=== PATIENT | female | born 1930 | race Caucasian/White ===

== ENCOUNTER → 2016-07-12 | Outpatient (CLI) | payer MEDICARE | END | disposition home or self-care (01) | LOC: CFH 15:02 | PROVIDERS: ATTEND Family Medicine | DX: M25.841 Other specified joint disorders, right hand (principal) ==

== ENCOUNTER 2017-05-28 15:13 | Inpatient (IN) | payer MEDICARE ==
[~2017-05-28] VITALS: Ht 165.1 cm; Wt 69.4 kg
[2017-05-28] MEDS ORDERED: ALBU1.25 NEB (15:29)
[2017-05-28] MEDS ORDERED: CPAP AT NIGHT (15:29)
[2017-05-28] MEDS ORDERED: LOSA1TAB19 PO (15:30)
[2017-05-28] MEDS ORDERED: AZIT500T PO (15:31)
[2017-05-28] MEDS ORDERED: METH4TAB2 PO (15:31)
[2017-05-28] MEDS ORDERED: TIOT18CA INH (15:31)
[2017-05-28] MEDS ORDERED: LINA290C PO (15:32)
[2017-05-28 16:00] LABS: BASOPHILS # (AUTO) 0.01 x10^3/uL (0-0.1); BASOPHILS % (AUTO) 0 % (0-1); EOSINOPHILS # (AUTO) 0.02 x10^3/uL (0-0.4); EOSINOPHILS % (AUTO) 0 % (1-7); LYMPHOCYTES # (AUTO) 1.03 x10^3/uL (1-3.4); LYMPHOCYTES % (AUTO) 14 % (22-44); MD NO; MEAN CORPUSCULAR HGB CONC 32.9 g/dL (32.4-35.8); MEAN CORPUSCULAR VOLUME 85.2 fL (80-100); MEAN PLATELET VOLUME 9.1 fL (7.4-10.4); MONOCYTES # (AUTO) 0.33 x10^3/uL (0.2-0.8); MONOCYTES % (AUTO) 4 % (2-9); NEUTROPHILS # (AUTO) 6.08 x10^3/uL (1.8-6.8); NEUTROPHILS % (AUTO) 81 % (42-75); PLATELET COUNT 277 x10^3/uL (130-400); RED BLOOD COUNT 4.79 x10^6/uL (3.82-5.3); RED CELL DISTRIBUTION WIDTH 14.1 % (9.6-15.2)
[2017-05-28] MEDS ORDERED: SODIUM CHLORIDE FLUSH 10ML SYR IVF ONE (16:00)
[2017-05-28 16:13] LABS: ALANINE AMINOTRANSFERASE 33 U/L (12-78); ANION GAP 11 mmol/L (5-15); CALCIUM 9.5 mg/dL (8.5-10.1); CHLORIDE 106 mmol/L (98-107); CREATININE 1.02 mg/dL (0.55-1.02)
[2017-05-28 16:17] LABS: ALKALINE PHOSPHATASE 84 U/L (45-117); BILIRUBIN,TOTAL 0.6 mg/dL (0.2-1.0); TOTAL PROTEIN 7.5 g/dL (6.4-8.2); TROPONIN I < 0.015 ng/mL (0.000-0.045)
[2017-05-28 17:04] LABS: MICROSCOPIC NOT IND
[2017-05-28 17:06] LABS: CULTURE INDICATED? NO
[2017-05-28] MEDS ORDERED: methylPREDNISolone SOD SUCC 125 MG/2 ML IVPush ONE (19:00)
[2017-05-28] MEDS ORDERED: POLYETHYLENE GLYCOL 17 GM PACKET PO PRN (19:00)
[2017-05-28] MEDS ORDERED: IPRATROPIUM 0.5 MG/2.5 ML INHA NPPB SCH (19:00)
[2017-05-28] MEDS ORDERED: TEMPLATE NON-FORMULARY MED. (Linaclotide** (Linzess**) 290 MCG) PO SCH (19:00)
[2017-05-28] MEDS ORDERED: GUAIFENESIN/DM 200-20MG, 10ML UDC PO PRN (19:00)
[2017-05-28] MEDS ORDERED: ONDANSETRON 2MG/ML, 2ML IVPush PRN (19:00)
[2017-05-28] MEDS ORDERED: BISACODYL 10 MG SUPP PR PRN (19:00)
[2017-05-28 19:44] VITALS: BP 167/87
[2017-05-28] MEDS: methylPREDNISolone SOD SUCC 125 MG/2 ML IVPush SCH (20:53)
[2017-05-28] MEDS: SODIUM CHLORIDE FLUSH 10ML SYR IVF SCH (20:54)
[2017-05-28] MEDS: HEPARIN 5,000 UNITS/ML, 1ML SQ SCH (20:54)
[2017-05-28] MEDS ORDERED: ALBUTEROL/IPRATROPIUM 2.5MG/0.5MG, 3 ML NPPB PRN (21:00)
[2017-05-28 23:21] VITALS: BP 167/87
[2017-05-29] MEDS: ACETAMINOPHEN 325 MG TABLET PO PRN (01:45)
[2017-05-29 01:49] VITALS: BP 152/78
[2017-05-29 05:00] LABS: BASOPHILS # (AUTO) 0.01 x10^3/uL (0-0.1); BASOPHILS % (AUTO) 0 % (0-1); EOSINOPHILS % (AUTO) 0 % (1-7); LYMPHOCYTES # (AUTO) 0.86 x10^3/uL (1-3.4); LYMPHOCYTES % (AUTO) 13 % (22-44); MD NO; MEAN CORPUSCULAR HEMOGLOBIN 28.2 pg (27.0-34.8); MEAN CORPUSCULAR HGB CONC 33.1 g/dL (32.4-35.8); MEAN CORPUSCULAR VOLUME 85.2 fL (80-100); MEAN PLATELET VOLUME 9.2 fL (7.4-10.4); MONOCYTES # (AUTO) 0.18 x10^3/uL (0.2-0.8); MONOCYTES % (AUTO) 3 % (2-9); NEUTROPHILS # (AUTO) 5.77 x10^3/uL (1.8-6.8); NEUTROPHILS % (AUTO) 85 % (42-75); PLATELET COUNT 264 x10^3/uL (130-400); RED BLOOD COUNT 4.65 x10^6/uL (3.82-5.3); RED CELL DISTRIBUTION WIDTH 13.7 % (9.6-15.2)
[2017-05-29 05:14] LABS: CHLORIDE 104 mmol/L (98-107)
[2017-05-29 05:21] LABS: ALANINE AMINOTRANSFERASE 30 U/L (12-78); ALBUMIN 3.7 g/dL (3.4-5.0); ALKALINE PHOSPHATASE 78 U/L (45-117); ANION GAP 13 mmol/L (5-15); BILIRUBIN,TOTAL 0.6 mg/dL (0.2-1.0); CALCIUM 8.9 mg/dL (8.5-10.1); CREATININE 0.96 mg/dL (0.55-1.02); TOTAL PROTEIN 7.2 g/dL (6.4-8.2)
[2017-05-29] MEDS: methylPREDNISolone SOD SUCC 125 MG/2 ML IVPush SCH ×3 (05:21→21:19)
[2017-05-29] MEDS: HEPARIN 5,000 UNITS/ML, 1ML SQ SCH ×3 (05:22→21:19)
[2017-05-29] MEDS: ALBUTEROL/IPRATROPIUM 2.5MG/0.5MG, 3 ML NPPB SCH ×4 (07:18→19:13)
[2017-05-29 07:29] LABS: CLOSTRIDIUM DIFFICILE ANTIGEN NEGATIVE; CLOSTRIDIUM DIFFICILE TOXIN NEGATIVE (Negative)
[2017-05-29 07:52] VITALS: BP 159/90
[2017-05-29] MEDS: HYDROCHLOROTHIAZIDE 12.5 MG CAPSULE PO SCH (09:00)
[2017-05-29] MEDS: SENNA/DOCUSATE TABLET PO SCH (09:00)
[2017-05-29] MEDS: SODIUM CHLORIDE FLUSH 10ML SYR IVF SCH ×2 (09:16→21:20)
[2017-05-29] MEDS: TEMPLATE NON-FORMULARY MED. (Linaclotide** (Linzess**) 290 MCG) PO SCH (09:16)
[2017-05-29] MEDS: LOSARTAN 50MG TABLET PO SCH (09:20)
[2017-05-29] MEDS: LACTOBACILLUS CHEW TABLET PO SCH ×3 (09:20→21:20)
[2017-05-29] MEDS: GUAIFENESIN ER 600 MG TABLET PO SCH ×2 (09:20→21:20)
[2017-05-29] MEDS: FLUTICASONE/VILANTEROL 100-25MCG/INH INH SCH (10:03)
[2017-05-29] MEDS ORDERED: ASPI-496 PO (12:32)
[2017-05-29] MEDS ORDERED: PREG50CA PO (12:32)
[2017-05-29] MEDS ORDERED: ALBU8.5H8 INH (12:32)
[2017-05-29] MEDS ORDERED: LOSA100T6 PO (12:32)
[2017-05-29] MEDS ORDERED: MAGN400T36 PO (12:32)
[2017-05-29] MEDS ORDERED: CETI-158 PO (12:32)
[2017-05-29] MEDS ORDERED: [UNRECOGNIZED DRUG - CODE] PO (12:32)
[2017-05-29] MEDS ORDERED: CHOL100011 PO (12:32)
[2017-05-29] MEDS ORDERED: BETA1TAB3 PO (12:32)
[2017-05-29] MEDS ORDERED: OMEP-110 PO (12:32)
[2017-05-29] MEDS ORDERED: TRIA10.8 NAS (12:32)
[2017-05-29] MEDS ORDERED: DOCU-131 PO (12:32)
[2017-05-29] MEDS ORDERED: FLUO40CA2 PO (12:49)
[2017-05-29 13:47] VITALS: BP 129/74
[2017-05-29] MEDS: OMEPRAZOLE 20 MG CAPSULE.DR PO SCH (15:56)
[2017-05-29 19:48] VITALS: BP 125/68
[2017-05-30 00:49] VITALS: BP 161/84
[2017-05-30] MEDS: methylPREDNISolone SOD SUCC 125 MG/2 ML IVPush SCH ×2 (05:32→12:32)
[2017-05-30] MEDS: HEPARIN 5,000 UNITS/ML, 1ML SQ SCH ×2 (05:32→12:32)
[2017-05-30] MEDS: ALBUTEROL/IPRATROPIUM 2.5MG/0.5MG, 3 ML NPPB SCH ×2 (06:34→12:20)
[2017-05-30] MEDS: TEMPLATE NON-FORMULARY MED. (Linaclotide** (Linzess**) 290 MCG) PO SCH (07:30)
[2017-05-30 08:01] VITALS: BP 178/72
[2017-05-30] MEDS ORDERED: ALBU1.25 NEB (08:06)
[2017-05-30] MEDS ORDERED: PRED10TA PO (08:06)
[2017-05-30] MEDS: SENNA/DOCUSATE TABLET PO SCH (09:00)
[2017-05-30] MEDS: LOSARTAN 50MG TABLET PO SCH (09:47)
[2017-05-30] MEDS: OMEPRAZOLE 20 MG CAPSULE.DR PO SCH (09:47)
[2017-05-30] MEDS: GUAIFENESIN ER 600 MG TABLET PO SCH (09:47)
[2017-05-30] MEDS: FLUTICASONE/VILANTEROL 100-25MCG/INH INH SCH (09:47)
[2017-05-30] MEDS: SODIUM CHLORIDE FLUSH 10ML SYR IVF SCH (09:47)
[2017-05-30] MEDS: HYDROCHLOROTHIAZIDE 12.5 MG CAPSULE PO SCH (09:48)
[2017-05-30] MEDS: LACTOBACILLUS CHEW TABLET PO SCH (09:48)
[2017-05-30] MEDS: ACETAMINOPHEN 325 MG TABLET PO PRN (10:01)
== END 2017-05-30 13:13 | disposition home or self-care (01) | DRG 191 ==
LOC: ED 17:09 → EDIP 17:10 → ED 17:37 → 3NE 18:32 → DCLOUNGE 05-30 12:57
PROVIDERS: ADMIT Family Medicine; ATTEND Family Medicine
DX: J44.1 Chronic obstructive pulmonary disease with (acute) exacerbation (principal); E87.2 Acidosis; G62.9 Polyneuropathy, unspecified; Z99.81 Dependence on supplemental oxygen; I10 Essential (primary) hypertension; F32.9 Major depressive disorder, single episode, unspecified; F41.9 Anxiety disorder, unspecified; G47.30 Sleep apnea, unspecified; K21.9 Gastro-esophageal reflux disease without esophagitis; K58.9 Irritable bowel syndrome, unspecified; Z66 Do not resuscitate; Z72.0 Tobacco use; Z80.0 Family history of malignant neoplasm of digestive organs; Z82.5 Family history of asthma and other chronic lower respiratory diseases; Z85.3 Personal history of malignant neoplasm of breast; Z90.13 Acquired absence of bilateral breasts and nipples; Z96.619 Presence of unspecified artificial shoulder joint; Z96.649 Presence of unspecified artificial hip joint
CPT/HCPCS: 36415; 71045; 80053; 81003; 83605; 83880; 84484; 85025; 85379; 87040; 87324; 93005; 94640; 99285; J1644; J7620; J7644; J2930

== ENCOUNTER 2017-08-20 14:37 | Inpatient (IN) | payer MEDICARE, MEDICAID ==
[~2017-08-20] VITALS: Ht 165.1 cm; Wt 73.4 kg
[~2017-08-20 14:37] MED LIST: ALBU1.25 NEB; ALBU8.5H8 INH; ASPI-496 PO; AZIT500T PO; BETA1TAB3 PO; CETI-158 PO; CHOL100011 PO; CPAP AT NIGHT; DOCU-131 PO; FLUO40CA2 PO; LINA290C PO; LOSA100T6 PO; LOSA1TAB19 PO; MAGN400T36 PO; METH4TAB2 PO; OMEP-110 PO; PRED10TA PO; PREG50CA PO; TIOT18CA INH; TRIA10.8 NAS; [UNRECOGNIZED DRUG - CODE] PO
[2017-08-20] MEDS ORDERED: CEFTRIAXONE PMX 1GM/50ML 50 ML IVPB ONE (15:00)
[2017-08-20] MEDS ORDERED: SODIUM CHLORIDE FLUSH 10ML SYR IVF ONE (15:00)
[2017-08-20] MEDS ORDERED: CEFTRIAXONE PMX 1GM/50ML 50 ML ONE (15:20)
[2017-08-20 15:43] LABS: BASOPHILS # (AUTO) 0.01 x10^3/uL (0-0.1); BASOPHILS % (AUTO) 0 % (0-1); EOSINOPHILS # (AUTO) 0.08 x10^3/uL (0-0.4); EOSINOPHILS % (AUTO) 1 % (1-7); LYMPHOCYTES # (AUTO) 1.73 x10^3/uL (1-3.4); LYMPHOCYTES % (AUTO) 28 % (22-44); MD NO; MEAN CORPUSCULAR HEMOGLOBIN 29.3 pg (27.0-34.8); MEAN CORPUSCULAR HGB CONC 33.4 g/dL (32.4-35.8); MEAN CORPUSCULAR VOLUME 87.6 fL (80-100); MONOCYTES # (AUTO) 0.63 x10^3/uL (0.2-0.8); MONOCYTES % (AUTO) 10 % (2-9); NEUTROPHILS # (AUTO) 3.82 x10^3/uL (1.8-6.8); NEUTROPHILS % (AUTO) 61 % (42-75); PLATELET COUNT 247 x10^3/uL (130-400); RED BLOOD COUNT 4.65 x10^6/uL (3.82-5.3); RED CELL DISTRIBUTION WIDTH 14.4 % (9.6-15.2)
[2017-08-20 15:49] LABS: ANION GAP 14 mmol/L (5-15); CALCIUM 9.9 mg/dL (8.5-10.1); CHLORIDE 102 mmol/L (98-107); CREATININE 1.04 mg/dL (0.55-1.02)
[2017-08-20] MEDS ORDERED: POTASSIUM CHLORIDE 20 MEQ TAB.ER.PRT PO ONE (16:30)
[2017-08-20 17:05] VITALS: BP 145/84
[2017-08-20] MEDS ORDERED: DOCUSATE 100 MG CAPSULE PO PRN (17:30)
[2017-08-20] MEDS ORDERED: BISACODYL 10 MG SUPP PR PRN (17:30)
[2017-08-20] MEDS ORDERED: ACETAMINOPHEN 325 MG TABLET PO PRN (17:30)
[2017-08-20] MEDS ORDERED: POLYETHYLENE GLYCOL 17 GM PACKET PO PRN (17:30)
[2017-08-20] MEDS ORDERED: ONDANSETRON 2MG/ML, 2ML IVPush PRN (17:30)
[2017-08-20] MEDS ORDERED: hydrALAzine 20 MG/ML, 1ML IVPush PRN (17:30)
[2017-08-20] MEDS ORDERED: IPRATROPIUM 0.5 MG/2.5 ML INHA HHN SCH (18:00)
[2017-08-20] MEDS ORDERED: ENOXAPARIN 40 MG/0.4 ML SQ SCH (18:00)
[2017-08-20] MEDS: FLUTICASONE NASAL SPRAY 16GM NAS SCH (18:35)
[2017-08-20] MEDS: DOXYCYCLINE 100 MG in DEXTROSE 5% 250 ML IV SCH (18:35)
[2017-08-20 19:38] VITALS: BP 142/80
[2017-08-20] MEDS: methylPREDNISolone SOD SUCC 125 MG/2 ML IVPush SCH (19:41)
[2017-08-20] MEDS ORDERED: ALBUTEROL/IPRATROPIUM 2.5MG/0.5MG, 3 ML ONE (20:17)
[2017-08-20 21:36] LABS: MICROSCOPIC NOT IND
[2017-08-20 21:38] LABS: CULTURE INDICATED? NO
[2017-08-21 00:27] VITALS: BP 162/88
[2017-08-21 04:39] LABS: ANION GAP 9 mmol/L (5-15); CALCIUM 9.2 mg/dL (8.5-10.1); CHLORIDE 105 mmol/L (98-107); CREATININE 0.91 mg/dL (0.55-1.02)
[2017-08-21 04:46] LABS: BASOPHILS % (AUTO) 0 % (0-1); EOSINOPHILS % (AUTO) 0 % (1-7); LYMPHOCYTES # (AUTO) 0.41 x10^3/uL (1-3.4); LYMPHOCYTES % (AUTO) 12 % (22-44); MD NO; MEAN CORPUSCULAR HEMOGLOBIN 28.3 pg (27.0-34.8); MEAN CORPUSCULAR HGB CONC 32.5 g/dL (32.4-35.8); MEAN CORPUSCULAR VOLUME 87.3 fL (80-100); MEAN PLATELET VOLUME 9.4 fL (7.4-10.4); MONOCYTES # (AUTO) 0.05 x10^3/uL (0.2-0.8); MONOCYTES % (AUTO) 2 % (2-9); NEUTROPHILS # (AUTO) 3.05 x10^3/uL (1.8-6.8); NEUTROPHILS % (AUTO) 87 % (42-75); PLATELET COUNT 272 x10^3/uL (130-400); RED BLOOD COUNT 4.39 x10^6/uL (3.82-5.3); RED CELL DISTRIBUTION WIDTH 14.1 % (9.6-15.2)
[2017-08-21] MEDS: DOXYCYCLINE 100 MG in DEXTROSE 5% 250 ML IV SCH (05:53)
[2017-08-21] MEDS: ALBUTEROL/IPRATROPIUM 2.5MG/0.5MG, 3 ML NPPB SCH ×2 (08:00→10:30)
[2017-08-21] MEDS: methylPREDNISolone SOD SUCC 125 MG/2 ML IVPush SCH (08:22)
[2017-08-21] MEDS: FLUTICASONE NASAL SPRAY 16GM NAS SCH (08:27)
[2017-08-21 09:00] VITALS: BP 155/75
[2017-08-21] MEDS ORDERED: FLUOXETINE 10 MG CAP PO SCH (09:00)
[2017-08-21] MEDS ORDERED: CETIRIZINE 10 MG TABLET PO SCH (09:00)
[2017-08-21] MEDS ORDERED: ASPIRIN 81 MG TABLET EC PO SCH (09:00)
[2017-08-21] MEDS ORDERED: OMEPRAZOLE 20 MG CAPSULE.DR PO SCH (09:00)
[2017-08-21] MEDS ORDERED: MAGNESIUM OXIDE 400 MG TABLET PO SCH (09:00)
[2017-08-21] MEDS ORDERED: LOSARTAN 50MG TABLET PO SCH (09:00)
[2017-08-21] MEDS ORDERED: GUAIFENESIN ER 600 MG TABLET PO SCH (09:00)
[2017-08-21] MEDS ORDERED: DOCUSATE 100 MG CAPSULE PO SCH (09:00)
[2017-08-21] MEDS ORDERED: PREGABALIN 25 MG CAPSULE PO SCH (09:00)
[2017-08-21] MEDS ORDERED: CHOLECALCIFEROL 1,000 UNIT TABLET PO SCH (09:00)
[2017-08-21] MEDS ORDERED: DOXY100T PO (12:43)
[2017-08-21] MEDS ORDERED: [UNRECOGNIZED DRUG - CODE] PO (12:43)
[2017-08-21] MEDS ORDERED: PRED20TA PO (12:43)
== END 2017-08-21 16:04 | disposition home or self-care (01) | DRG 191 ==
LOC: ED 16:43 → 3NE 17:00 → DCLOUNGE 08-21 15:46
PROVIDERS: ADMIT Hospitalist; ATTEND Hospitalist
DX: J44.1 Chronic obstructive pulmonary disease with (acute) exacerbation (principal); E87.2 Acidosis; G62.9 Polyneuropathy, unspecified; Z99.81 Dependence on supplemental oxygen; I10 Essential (primary) hypertension; Z96.619 Presence of unspecified artificial shoulder joint; Z96.649 Presence of unspecified artificial hip joint; F32.9 Major depressive disorder, single episode, unspecified; K21.9 Gastro-esophageal reflux disease without esophagitis; K58.9 Irritable bowel syndrome, unspecified; Z72.0 Tobacco use; Z80.0 Family history of malignant neoplasm of digestive organs; Z82.5 Family history of asthma and other chronic lower respiratory diseases; Z85.3 Personal history of malignant neoplasm of breast; Z90.13 Acquired absence of bilateral breasts and nipples; Z90.49 Acquired absence of other specified parts of digestive tract
CPT/HCPCS: 36415; 71045; 80048; 81003; 82040; 83605; 83735; 84100; 85025; 87040; 93005; 94640; 96365; J0696; J2405; J7060; J7620; J7644; J2930

== ENCOUNTER 2019-03-20 13:45 | Inpatient (IN) | payer MEDICARE, MEDICAID ==
[~2019-03-20] VITALS: Ht 165.1 cm; Wt 73.3 kg
[~2019-03-20 13:45] MED LIST changes: +ASPI-515 PO/NG; +ATOR-2 PO; +DOXY100T PO; +ENOX40SY4 SQ; +LOSA100T14 PO; -LOSA100T6 PO; +OMEP20CA14 PO; +PRED20TA PO; +[UNRECOGNIZED DRUG - CODE] PO
[2019-03-20] MEDS ORDERED: ALBUTEROL/IPRATROPIUM 2.5MG/0.5MG, 3 ML NPPB ONE (14:30)
[2019-03-20] MEDS ORDERED: SODIUM CHLORIDE 0.9% 1,000ML IVBOLUS ONE (14:30)
[2019-03-20] MEDS ORDERED: SODIUM CHLORIDE FLUSH 10ML SYR IVF ONE (14:30)
[2019-03-20 14:54] LABS: BASOPHILS # (AUTO) 0.01 x10^3/uL (0-0.1); BASOPHILS % (AUTO) 0 % (0-1); EOSINOPHILS % (AUTO) 0 % (1-7); LYMPHOCYTES % (AUTO) 5 % (22-44); MD NO; MEAN CORPUSCULAR HEMOGLOBIN 28.3 pg (27.0-34.8); MEAN CORPUSCULAR HGB CONC 32.2 g/dL (32.4-35.8); MEAN CORPUSCULAR VOLUME 87.7 fL (80-100); MEAN PLATELET VOLUME 8.8 fL (7.4-10.4); MONOCYTES # (AUTO) 0.62 x10^3/uL (0.2-0.8); MONOCYTES % (AUTO) 6 % (2-9); NEUTROPHILS # (AUTO) 9.11 x10^3/uL (1.8-6.8); NEUTROPHILS % (AUTO) 89 % (42-75); PLATELET COUNT 269 x10^3/uL (130-400); RED BLOOD COUNT 4.52 x10^6/uL (3.82-5.3); RED CELL DISTRIBUTION WIDTH 14.3 % (9.6-15.2)
[2019-03-20 15:03] LABS: ALANINE AMINOTRANSFERASE 35 U/L (12-78); ALBUMIN 4.2 g/dL (3.4-5.0); ANION GAP 10 mmol/L (5-15); CALCIUM 9.8 mg/dL (8.5-10.1); CHLORIDE 106 mmol/L (98-107)
[2019-03-20] MEDS ORDERED: ALBUTEROL/IPRATROPIUM 2.5MG/0.5MG, 3 ML ONE (15:07)
[2019-03-20 15:08] LABS: ALKALINE PHOSPHATASE 94 U/L (45-117); BILIRUBIN,TOTAL 0.6 mg/dL (0.2-1.0); CREATININE 0.91 mg/dL (0.55-1.02); TOTAL PROTEIN 7.7 g/dL (6.4-8.2)
[2019-03-20] MEDS ORDERED: ASPIRIN 81 MG TABLET CHEW ONE (15:25)
[2019-03-20 15:30] LABS: RAPID INFLUENZA A Negative (Negative); RAPID INFLUENZA B Negative (Negative)
--- NOTE | 2019-03-20 15:36 | NUR ---
trop 2.0, notified, asa per may, ekg done. nsr on monitor. denies cp.repostioned. c/o some sob. plan for admit. was taking azithro po at home. as
[2019-03-20] MEDS ORDERED: ASPIRIN 81 MG TABLET CHEW PO ONE (16:00)
--- NOTE | 2019-03-20 16:16 | NUR ---
called for hospital bed. as
--- NOTE | 2019-03-20 16:46 | NUR ---
pt moved to hospital bed, plan for admit. family at bedside. vss. nsr on monitor 70s. denies cp. as
--- NOTE | 2019-03-20 17:09 | NUR ---
repositioned. NAD. as
[2019-03-20] MEDS ORDERED: SODIUM CHLORIDE FLUSH 10ML SYR IVF PRN (18:30)
--- NOTE | 2019-03-20 19:28 | NUR ---
pt repositioned, sleeping. vss. as
--- NOTE | 2019-03-20 19:48 | NUR ---
[facility] munguia in [facility] - 03/20/19 at 1948 by SINDI KATHERINER 170
[2019-03-20] MEDS ORDERED: ONDANSETRON 2MG/ML, 2ML IVPush PRN (20:00)
[2019-03-20] MEDS ORDERED: BISACODYL 10 MG SUPP PR PRN (20:00)
[2019-03-20] MEDS ORDERED: DOCUSATE 100 MG CAPSULE PO PRN (20:00)
[2019-03-20] MEDS ORDERED: ACETAMINOPHEN 325 MG TABLET PO PRN (20:00)
[2019-03-20] MEDS ORDERED: POLYETHYLENE GLYCOL 17 GM PACKET PO PRN (20:00)
[2019-03-20] MEDS ORDERED: ENOXAPARIN 40 MG/0.4 ML SQ SCH (20:00)
[2019-03-20] MEDS ORDERED: ENOXAPARIN 40 MG/0.4 ML ONE (20:21)
[2019-03-20] MEDS ORDERED: methylPREDNISolone SOD SUCC 40 MG/ML ONE (20:22)
[2019-03-20] MEDS ORDERED: BENZONATATE 100 MG CAPSULE ONE (20:22)
--- NOTE | 2019-03-20 20:26 | NUR ---
pt coughing, asked dr chavez for order for cough meds. family notifeid. as
--- NOTE | 2019-03-20 20:40 | NUR ---
dr chavez notified of trop 2.0 to 2.9 plan for heparin gtt. as
[2019-03-20] MEDS ORDERED: HEPARIN 25,000 UNITS/500ML PMX 500 ML ONE (20:44)
[2019-03-20] MEDS ORDERED: HEPARIN 5,000 UNITS/ML, 1ML ONE (20:44)
[2019-03-20] MEDS: methylPREDNISolone SOD SUCC 40 MG/ML IVPush SCH (21:03)
[2019-03-20] MEDS: ATORVASTATIN 80 MG TABLET PO SCH (21:05)
[2019-03-20] MEDS ORDERED: DOXYCYCLINE 100MG TABLET ONE (21:20)
--- NOTE | 2019-03-20 21:27 | NUR ---
spoke w/ pharmacy, verifieid heparin gtt, heparin infusing. as
[2019-03-20] MEDS ORDERED: HEPARIN 5,000 UNITS/ML, 1ML IV ONE (21:30)
[2019-03-20] MEDS ORDERED: HEPARIN 5,000 UNITS/ML, 1ML IV PRN (21:30)
[2019-03-20] MEDS ORDERED: HEPARIN 25,000 UNITS/500ML PMX 500 ML IV PRN (21:30)
[2019-03-20] MEDS ORDERED: ONDANSETRON 2MG/ML, 2ML ONE (21:32)
[2019-03-20] MEDS: GUAIFENESIN/DM 100-10MG, 5ML UDC PO PRN (21:43)
[2019-03-20] MEDS: DOXYCYCLINE 100MG TABLET PO SCH (21:43)
--- NOTE | 2019-03-20 21:48 | NUR ---
bedpan. prn meds. call zamudio in reach. NAD. as
[2019-03-20] MEDS ORDERED: INSTRUCTION SEE COMMENTS XX PRN (22:00)
[2019-03-21 00:09] VITALS: BP 129/75
[2019-03-21 02:37] LABS: BASOPHILS % (AUTO) 0 % (0-1); EOSINOPHILS # (AUTO) 0.01 x10^3/uL (0-0.4); EOSINOPHILS % (AUTO) 0 % (1-7); LYMPHOCYTES # (AUTO) 0.56 x10^3/uL (1-3.4); LYMPHOCYTES % (AUTO) 6 % (22-44); MD NO; MEAN CORPUSCULAR HEMOGLOBIN 28.1 pg (27.0-34.8); MEAN CORPUSCULAR HGB CONC 31.9 g/dL (32.4-35.8); MEAN CORPUSCULAR VOLUME 88.1 fL (80-100); MEAN PLATELET VOLUME 8.8 fL (7.4-10.4); MONOCYTES # (AUTO) 0.11 x10^3/uL (0.2-0.8); MONOCYTES % (AUTO) 1 % (2-9); NEUTROPHILS # (AUTO) 8.36 x10^3/uL (1.8-6.8); NEUTROPHILS % (AUTO) 92 % (42-75); PLATELET COUNT 246 x10^3/uL (130-400); RED BLOOD COUNT 4.29 x10^6/uL (3.82-5.3); RED CELL DISTRIBUTION WIDTH 14.9 % (9.6-15.2)
[2019-03-21 02:50] LABS: ALBUMIN 3.5 g/dL (3.4-5.0); ANION GAP 9 mmol/L (5-15); CHLORIDE 106 mmol/L (98-107)
[2019-03-21 03:01] LABS: ALANINE AMINOTRANSFERASE 38 U/L (12-78); ALKALINE PHOSPHATASE 79 U/L (45-117); BILIRUBIN,TOTAL 0.8 mg/dL (0.2-1.0); CHOL/HDL RATIO 3.1; CHOLESTEROL, TOTAL 184 mg/dL (140-239); CREATININE 0.72 mg/dL (0.55-1.02); HDL CHOL % 33 % (28-40); HDL CHOLESTEROL (DIRECT) 60 mg/dL (40-60); LDL CHOLESTEROL,CALCULATED 108 mg/dL (54-169); LDL/HDL RATIO 1.8 (0.5-3.0); TOTAL PROTEIN 6.8 g/dL (6.4-8.2); TRIGLYCERIDES 80 mg/dL (50-200); VLDL CHOLESTEROL 16 mg/dL (0-25)
[2019-03-21] MEDS: methylPREDNISolone SOD SUCC 40 MG/ML IVPush SCH ×4 (03:27→23:01)
[2019-03-21] MEDS ORDERED: ASPIRIN 325 MG TABLET EC PO SCH (06:00)
[2019-03-21] MEDS: ALBUTEROL/IPRATROPIUM 2.5MG/0.5MG, 3 ML NPPB SCH ×4 (07:00→20:15)
[2019-03-21 08:44] VITALS: BP 138/71
[2019-03-21] MEDS ORDERED: ENOXAPARIN 40 MG/0.4 ML SQ SCH (09:30)
[2019-03-21 10:23] VITALS: BP 152/72
[2019-03-21] MEDS: DOXYCYCLINE 100MG TABLET PO SCH ×2 (10:30→23:01)
[2019-03-21] MEDS: DOCUSATE 100 MG CAPSULE PO SCH (10:31)
[2019-03-21] MEDS: CLOPIDOGREL 75 MG TABLET PO SCH (10:32)
[2019-03-21] MEDS: OMEPRAZOLE 20 MG CAPSULE.DR PO SCH (10:32)
[2019-03-21] MEDS: PREGABALIN 25 MG CAPSULE PO SCH (10:32)
[2019-03-21] MEDS: FLUOXETINE HCL 20 MG CAPSULE PO SCH (10:33)
[2019-03-21] MEDS: CETIRIZINE 10 MG TABLET PO SCH (10:33)
[2019-03-21 11:48] VITALS: BP 145/76
[2019-03-21] MEDS: LOSARTAN 50MG TABLET PO SCH (11:50)
[2019-03-21] MEDS: GUAIFENESIN/DM 100-10MG, 5ML UDC PO PRN (13:13)
[2019-03-21 15:59] VITALS: BP 105/58
[2019-03-21 21:02] VITALS: BP 113/64
[2019-03-21] MEDS: ATORVASTATIN 80 MG TABLET PO SCH (23:01)
[2019-03-22 00:18] VITALS: BP 113/66
[2019-03-22] MEDS: MELATONIN 3 MG TABLET PO PRN ×2 (01:39→20:35)
[2019-03-22 05:00] LABS: BASOPHILS % (AUTO) 0 % (0-1); EOSINOPHILS # (AUTO) 0.01 x10^3/uL (0-0.4); EOSINOPHILS % (AUTO) 0 % (1-7); LYMPHOCYTES % (AUTO) 7 % (22-44); MD NO; MEAN CORPUSCULAR VOLUME 87.7 fL (80-100); MEAN PLATELET VOLUME 9.6 fL (7.4-10.4); MONOCYTES # (AUTO) 0.41 x10^3/uL (0.2-0.8); MONOCYTES % (AUTO) 4 % (2-9); NEUTROPHILS # (AUTO) 9.27 x10^3/uL (1.8-6.8); NEUTROPHILS % (AUTO) 89 % (42-75); PLATELET COUNT 240 x10^3/uL (130-400); RED BLOOD COUNT 4.23 x10^6/uL (3.82-5.3); RED CELL DISTRIBUTION WIDTH 14.6 % (9.6-15.2)
[2019-03-22 05:07] LABS: ANION GAP 7 mmol/L (5-15); CALCIUM 8.8 mg/dL (8.5-10.1); CHLORIDE 105 mmol/L (98-107); CREATININE 1.05 mg/dL (0.55-1.02)
[2019-03-22] MEDS: methylPREDNISolone SOD SUCC 40 MG/ML IVPush SCH ×4 (05:14→20:36)
[2019-03-22] MEDS: ASPIRIN 81 MG TABLET EC PO SCH (06:00)
[2019-03-22] MEDS ORDERED: HALOPERIDOL 5 MG/ML IM ONE (06:30)
[2019-03-22] MEDS: ALBUTEROL/IPRATROPIUM 2.5MG/0.5MG, 3 ML NPPB SCH ×4 (07:00→19:04)
[2019-03-22] MEDS ORDERED: POTASSIUM CHLORIDE 20 MEQ TAB.ER.PRT PO ONE (09:30)
[2019-03-22 09:53] VITALS: BP 144/76
[2019-03-22] MEDS ORDERED: HALOPERIDOL 5 MG/ML IV PRN (10:00)
[2019-03-22] MEDS: OMEPRAZOLE 20 MG CAPSULE.DR PO SCH (12:00)
[2019-03-22] MEDS: CLOPIDOGREL 75 MG TABLET PO SCH (12:01)
[2019-03-22] MEDS: CETIRIZINE 10 MG TABLET PO SCH (12:01)
[2019-03-22] MEDS: FLUOXETINE HCL 20 MG CAPSULE PO SCH (12:01)
[2019-03-22] MEDS: LOSARTAN 50MG TABLET PO SCH (12:01)
[2019-03-22] MEDS: PREGABALIN 25 MG CAPSULE PO SCH (12:01)
[2019-03-22] MEDS: DOXYCYCLINE 100MG TABLET PO SCH ×2 (12:01→20:35)
[2019-03-22] MEDS: DOCUSATE 100 MG CAPSULE PO SCH (12:05)
[2019-03-22 14:44] VITALS: BP 123/77
[2019-03-22] MEDS: GUAIFENESIN/DM 100-10MG, 5ML UDC PO PRN (14:47)
[2019-03-22 20:15] VITALS: BP 107/67
[2019-03-22] MEDS: ATORVASTATIN 80 MG TABLET PO SCH (20:35)
[2019-03-23 02:57] VITALS: BP 107/60
[2019-03-23] MEDS: methylPREDNISolone SOD SUCC 40 MG/ML IVPush SCH ×4 (03:01→20:56)
[2019-03-23 05:30] LABS: BASOPHILS # (AUTO) 0.03 x10^3/uL (0-0.1); BASOPHILS % (AUTO) 0 % (0-1); EOSINOPHILS % (AUTO) 0 % (1-7); LYMPHOCYTES # (AUTO) 0.65 x10^3/uL (1-3.4); LYMPHOCYTES % (AUTO) 5 % (22-44); MD NO; MEAN CORPUSCULAR HEMOGLOBIN 28.2 pg (27.0-34.8); MEAN PLATELET VOLUME 9.6 fL (7.4-10.4); MONOCYTES # (AUTO) 0.45 x10^3/uL (0.2-0.8); MONOCYTES % (AUTO) 4 % (2-9); NEUTROPHILS # (AUTO) 11.31 x10^3/uL (1.8-6.8); NEUTROPHILS % (AUTO) 91 % (42-75); PLATELET COUNT 241 x10^3/uL (130-400); RED BLOOD COUNT 4.15 x10^6/uL (3.82-5.3); RED CELL DISTRIBUTION WIDTH 14.8 % (9.6-15.2)
[2019-03-23] MEDS: ASPIRIN 81 MG TABLET EC PO SCH (05:33)
[2019-03-23 05:45] LABS: ANION GAP 8 mmol/L (5-15); CALCIUM 8.5 mg/dL (8.5-10.1); CHLORIDE 109 mmol/L (98-107)
[2019-03-23 05:46] LABS: CREATININE 1.35 mg/dL (0.55-1.02)
[2019-03-23 07:15] VITALS: BP 134/75
[2019-03-23] MEDS: ALBUTEROL/IPRATROPIUM 2.5MG/0.5MG, 3 ML NPPB SCH ×4 (08:25→19:56)
[2019-03-23 08:38] LABS: MICROSCOPIC AUTO
[2019-03-23 08:43] LABS: CULTURE INDICATED? NO
[2019-03-23] MEDS: FLUOXETINE HCL 20 MG CAPSULE PO SCH (08:48)
[2019-03-23] MEDS: OMEPRAZOLE 20 MG CAPSULE.DR PO SCH (08:49)
[2019-03-23] MEDS: CETIRIZINE 10 MG TABLET PO SCH (08:49)
[2019-03-23] MEDS: CLOPIDOGREL 75 MG TABLET PO SCH (08:49)
[2019-03-23] MEDS: GUAIFENESIN/DM 100-10MG, 5ML UDC PO PRN ×3 (08:49→20:56)
[2019-03-23] MEDS: PREGABALIN 25 MG CAPSULE PO SCH (08:49)
[2019-03-23] MEDS: DOCUSATE 100 MG CAPSULE PO SCH (08:50)
[2019-03-23] MEDS: LOSARTAN 50MG TABLET PO SCH (08:50)
[2019-03-23] MEDS: DOXYCYCLINE 100MG TABLET PO SCH ×2 (08:50→20:56)
[2019-03-23 12:47] VITALS: BP 147/81
[2019-03-23] MEDS ORDERED: FLUT1BLS3 IH (13:56)
[2019-03-23] MEDS: FLUTICASONE FUROATE INH SCH (14:18)
[2019-03-23] MEDS: UMECLIDINIUM INH SCH (14:18)
[2019-03-23] MEDS: VILANTEROL INH SCH (14:18)
[2019-03-23 20:53] VITALS: BP 138/75
[2019-03-23] MEDS: ATORVASTATIN 80 MG TABLET PO SCH (20:56)
[2019-03-23] MEDS: MELATONIN 3 MG TABLET PO PRN (20:56)
[2019-03-24 02:04] VITALS: BP 144/75
[2019-03-24] MEDS: methylPREDNISolone SOD SUCC 40 MG/ML IVPush SCH ×4 (02:17→20:50)
[2019-03-24 04:46] LABS: BASOPHILS % (AUTO) 0 % (0-1); EOSINOPHILS % (AUTO) 0 % (1-7); LYMPHOCYTES # (AUTO) 0.47 x10^3/uL (1-3.4); LYMPHOCYTES % (AUTO) 4 % (22-44); MD NO; MEAN CORPUSCULAR HEMOGLOBIN 28.1 pg (27.0-34.8); MEAN CORPUSCULAR HGB CONC 31.9 g/dL (32.4-35.8); MEAN PLATELET VOLUME 9.7 fL (7.4-10.4); MONOCYTES # (AUTO) 0.25 x10^3/uL (0.2-0.8); MONOCYTES % (AUTO) 2 % (2-9); NEUTROPHILS # (AUTO) 11.12 x10^3/uL (1.8-6.8); NEUTROPHILS % (AUTO) 94 % (42-75); PLATELET COUNT 252 x10^3/uL (130-400); RED CELL DISTRIBUTION WIDTH 14.9 % (9.6-15.2)
[2019-03-24 04:59] LABS: ANION GAP 9 mmol/L (5-15); CHLORIDE 108 mmol/L (98-107)
[2019-03-24 05:01] LABS: CREATININE 1.14 mg/dL (0.55-1.02)
[2019-03-24] MEDS: ASPIRIN 81 MG TABLET EC PO SCH (06:06)
[2019-03-24] MEDS: GUAIFENESIN/DM 100-10MG, 5ML UDC PO PRN ×2 (06:10→15:48)
[2019-03-24] MEDS: ALBUTEROL/IPRATROPIUM 2.5MG/0.5MG, 3 ML NPPB SCH ×4 (07:00→20:18)
[2019-03-24 07:27] VITALS: BP 133/73
[2019-03-24] MEDS: CETIRIZINE 10 MG TABLET PO SCH (09:17)
[2019-03-24] MEDS: OMEPRAZOLE 20 MG CAPSULE.DR PO SCH (09:17)
[2019-03-24] MEDS: DOXYCYCLINE 100MG TABLET PO SCH ×2 (09:17→20:50)
[2019-03-24] MEDS: DOCUSATE 100 MG CAPSULE PO SCH (09:17)
[2019-03-24] MEDS: FLUOXETINE HCL 20 MG CAPSULE PO SCH (09:17)
[2019-03-24] MEDS: CLOPIDOGREL 75 MG TABLET PO SCH (09:17)
[2019-03-24] MEDS: LOSARTAN 50MG TABLET PO SCH (09:17)
[2019-03-24] MEDS: PREGABALIN 25 MG CAPSULE PO SCH (09:17)
[2019-03-24] MEDS: FLUTICASONE FUROATE INH SCH (09:20)
[2019-03-24] MEDS: VILANTEROL INH SCH (09:20)
[2019-03-24] MEDS: UMECLIDINIUM INH SCH (09:20)
[2019-03-24 13:05] VITALS: BP 125/73
[2019-03-24 20:14] VITALS: BP 121/75
[2019-03-24] MEDS: ATORVASTATIN 80 MG TABLET PO SCH (20:50)
[2019-03-25 03:02] VITALS: BP 158/78
[2019-03-25] MEDS: methylPREDNISolone SOD SUCC 40 MG/ML IVPush SCH ×3 (03:05→15:22)
[2019-03-25] MEDS: ASPIRIN 81 MG TABLET EC PO SCH (06:36)
[2019-03-25] MEDS: ALBUTEROL/IPRATROPIUM 2.5MG/0.5MG, 3 ML NPPB SCH ×2 (07:00→11:00)
[2019-03-25 07:20] VITALS: BP 148/80
[2019-03-25] MEDS: FLUOXETINE HCL 20 MG CAPSULE PO SCH (07:39)
[2019-03-25] MEDS: DOXYCYCLINE 100MG TABLET PO SCH (07:39)
[2019-03-25] MEDS: CLOPIDOGREL 75 MG TABLET PO SCH (07:39)
[2019-03-25] MEDS: CETIRIZINE 10 MG TABLET PO SCH (07:40)
[2019-03-25] MEDS: LOSARTAN 50MG TABLET PO SCH (07:40)
[2019-03-25] MEDS: PREGABALIN 25 MG CAPSULE PO SCH (07:40)
[2019-03-25] MEDS: DOCUSATE 100 MG CAPSULE PO SCH (07:41)
[2019-03-25] MEDS: OMEPRAZOLE 20 MG CAPSULE.DR PO SCH (07:41)
[2019-03-25] MEDS: UMECLIDINIUM INH SCH (07:45)
[2019-03-25] MEDS: VILANTEROL INH SCH (07:45)
[2019-03-25] MEDS: FLUTICASONE FUROATE INH SCH (07:45)
[2019-03-25] MEDS ORDERED: REGADENOSON 0.4 MG/5 ML SYRINGE ONE (08:02)
[2019-03-25 12:30] VITALS: BP 115/65
== END 2019-03-25 16:22 | disposition home health service (06) | DRG 190 ==
LOC: ED 16:09 → EDIP 17:08 → 5SO 22:41 → DCLOUNGE 03-25 16:04
PROVIDERS: ADMIT Hospitalist; ATTEND Family Medicine
DX: J44.0 Chronic obstructive pulmonary disease with (acute) lower respiratory infection (principal); G92 Toxic encephalopathy; I21.A1 Myocardial infarction type 2; J96.10 Chronic respiratory failure, unspecified whether with hypoxia or hypercapnia; N17.9 Acute kidney failure, unspecified; I69.351 Hemiplegia and hemiparesis following cerebral infarction affecting right dominant side; J44.1 Chronic obstructive pulmonary disease with (acute) exacerbation; J20.9 Acute bronchitis, unspecified; E78.5 Hyperlipidemia, unspecified; F32.9 Major depressive disorder, single episode, unspecified; G47.33 Obstructive sleep apnea (adult) (pediatric); G62.9 Polyneuropathy, unspecified; I10 Essential (primary) hypertension; K21.9 Gastro-esophageal reflux disease without esophagitis; K58.9 Irritable bowel syndrome, unspecified; Z96.619 Presence of unspecified artificial shoulder joint; M75.01 Adhesive capsulitis of right shoulder; M19.011 Primary osteoarthritis, right shoulder; M75.00 Adhesive capsulitis of unspecified shoulder; Z85.3 Personal history of malignant neoplasm of breast; Z87.891 Personal history of nicotine dependence; Z90.13 Acquired absence of bilateral breasts and nipples; Z90.49 Acquired absence of other specified parts of digestive tract; Z99.81 Dependence on supplemental oxygen; Z88.8 Allergy status to other drugs, medicaments and biological substances
CPT/HCPCS: 36415; 71045; 78452; 80048; 80053; 80061; 81001; 83605; 83735; 84145; 84443; 84484; 85014; 85018; 85025; 85520; 87040; 87070; 87205; 87400; 93005; 93017; 93306; 94640; 96374; 99285; G0378; J1644; J2405; J2785; J7620; A9502; J1630; J2920; J7030

== ENCOUNTER 2019-04-28 07:00 | Observation (INO) | payer MEDICARE, MEDICAID ==
[~2019-04-28] VITALS: Ht 165.1 cm; Wt 75.5 kg
[~2019-04-28 07:00] MED LIST changes: +FLUT1BLS3 IH; -OMEP20CA14 PO; +OMEP20CA20 PO
[2019-04-28 08:00] LABS: BASOPHILS # (AUTO) 0.02 x10^3/uL (0-0.1); BASOPHILS % (AUTO) 0 % (0-1); EOSINOPHILS % (AUTO) 0 % (1-7); LYMPHOCYTES # (AUTO) 0.65 x10^3/uL (1-3.4); LYMPHOCYTES % (AUTO) 8 % (22-44); MD NO; MEAN CORPUSCULAR HEMOGLOBIN 28.5 pg (27.0-34.8); MEAN CORPUSCULAR HGB CONC 32.8 g/dL (32.4-35.8); MEAN CORPUSCULAR VOLUME 86.9 fL (80-100); MEAN PLATELET VOLUME 8.3 fL (7.4-10.4); MONOCYTES # (AUTO) 0.64 x10^3/uL (0.2-0.8); MONOCYTES % (AUTO) 8 % (2-9); NEUTROPHILS # (AUTO) 6.56 x10^3/uL (1.8-6.8); NEUTROPHILS % (AUTO) 83 % (42-75); PLATELET COUNT 278 x10^3/uL (130-400); RED BLOOD COUNT 4.14 x10^6/uL (3.82-5.3); RED CELL DISTRIBUTION WIDTH 14.9 % (9.6-15.2)
[2019-04-28] MEDS ORDERED: LIDOCAINE 2%,20 ML JEL.PF.APP MM ONE (08:00)
[2019-04-28 08:08] LABS: ALBUMIN 3.4 g/dL (3.4-5.0); ANION GAP 6 mmol/L (5-15); CALCIUM 8.7 mg/dL (8.5-10.1); CHLORIDE 105 mmol/L (98-107); CREATININE 0.79 mg/dL (0.55-1.02)
--- NOTE | 2019-04-28 08:30 | NUR ---
STRAIGHT CATH PERFORMED PER POLICY, PATIENT TOLERATED WELL. SAMPLE WALKED TO LAB.
[2019-04-28 08:55] LABS: MICROSCOPIC INDICATED
[2019-04-28] MEDS ORDERED: SODIUM CHLORIDE 0.9%, 500ML IVBOLUS ONE (09:00)
[2019-04-28] MEDS ORDERED: AMLO-150 PO (09:08)
[2019-04-28] MEDS ORDERED: ASPI-650 PO (09:09)
[2019-04-28] MEDS ORDERED: PRESERVISION (09:12)
[2019-04-28] MEDS ORDERED: FOLIC (09:12)
[2019-04-28 09:41] LABS: TROPONIN I < 0.015 ng/mL (0.000-0.045)
--- NOTE | 2019-04-28 09:46 | NUR ---
PT TO BE ADMITTED. PT AWARE. IV PLACEMENT BEING ATTEMPTED AT THIS TIME. CALL LIGHT WITHIN REACH. NO STATED COMPLAINTS AT THIS TIME.
[2019-04-28 09:49] LABS: CULTURE INDICATED? NO
--- NOTE | 2019-04-28 09:58 | NUR ---
IV INSERTED, PATIENT TOLERATED WELL. ORDERED FLUIDS INFUSING. WAITING ROOM ASSIGNMENT. BEDRAILS UP, CALL LIGHT WITHIN REACH.
--- NOTE | 2019-04-28 10:51 | NUR ---
PROVIDER WITH PT. CONDITION UNCHANGED, BEDRAILS UP, CALL LIGHT AND BELONGINGS IN REACH.
[2019-04-28] MEDS ORDERED: ALBUTEROL SULFATE 2.5 MG/3 ML NEB PRN (11:00)
[2019-04-28] MEDS: (Fluticasone/Umeclidin/Vilanter (Trelegy Ellipta 100-62.5-25 HOMEINH SCH (11:00)
[2019-04-28] MEDS ORDERED: ONDANSETRON 2MG/ML, 2ML IVPush PRN (11:00)
[2019-04-28] MEDS ORDERED: ONDANSETRON ODT 4 MG PO PRN (11:00)
[2019-04-28] MEDS ORDERED: POLYETHYLENE GLYCOL 17 GM PACKET PO PRN (11:00)
[2019-04-28] MEDS ORDERED: DOCUSATE 100 MG CAPSULE PO PRN (11:00)
[2019-04-28] MEDS ORDERED: ACETAMINOPHEN 325 MG TABLET PO PRN (11:00)
[2019-04-28 11:20] LABS: ALBUMIN 3.4 g/dL (3.4-5.0)
[2019-04-28 11:22] LABS: BILIRUBIN, DIRECT 0.1 mg/dL (0.1-0.2); BILIRUBIN,INDIRECT 0.3 mg/dL (0.0-2.0); BILIRUBIN,TOTAL 0.4 mg/dL (0.2-1.0); TOTAL PROTEIN 6.9 g/dL (6.4-8.2)
--- NOTE | 2019-04-28 11:38 | NUR ---
REPORT GIVEN BEBE SPENCE RN.
[2019-04-28 12:11] VITALS: BP 152/76
[2019-04-28] MEDS: PREGABALIN MC SCH ×2 (12:30→19:26)
[2019-04-28] MEDS: AMLODIPINE 5 MG TABLET PO SCH (13:34)
[2019-04-28] MEDS: ASPIRIN 325 MG TABLET EC PO SCH (13:34)
[2019-04-28] MEDS: OMEPRAZOLE 20 MG CAPSULE.DR PO SCH (13:34)
[2019-04-28] MEDS: FLUOXETINE HCL 20 MG CAPSULE PO SCH (13:34)
[2019-04-28] MEDS: LOSARTAN 100 MG TAB PO SCH (13:34)
[2019-04-28] MEDS: LACTATED RINGERS 1,000 ML IV SCH (13:37)
[2019-04-28 13:42] LABS: RAPID INFLUENZA A Negative (Negative); RAPID INFLUENZA B Negative (Negative)
[2019-04-28 16:00] VITALS: BP 152/76
[2019-04-28 17:34] VITALS: BP 152/76
[2019-04-28 19:01] VITALS: BP 155/77
[2019-04-28] MEDS ORDERED: MELATONIN 5 MG TABLET PO PRN (20:00)
[2019-04-28] MEDS ORDERED: PREGABALIN PO SCH (21:00)
[2019-04-28] MEDS ORDERED: ATORVASTATIN 80 MG TABLET PO SCH (21:00)
[2019-04-29 00:46] VITALS: BP 130/65
[2019-04-29] MEDS: LACTATED RINGERS 1,000 ML IV SCH ×2 (00:49→10:38)
[2019-04-29] MEDS: PREGABALIN MC SCH ×2 (04:30→12:30)
[2019-04-29 05:58] LABS: BASOPHILS # (AUTO) 0.01 x10^3/uL (0-0.1); BASOPHILS % (AUTO) 0 % (0-1); EOSINOPHILS # (AUTO) 0.06 x10^3/uL (0-0.4); EOSINOPHILS % (AUTO) 1 % (1-7); LYMPHOCYTES # (AUTO) 1.21 x10^3/uL (1-3.4); LYMPHOCYTES % (AUTO) 16 % (22-44); MD NO; MEAN CORPUSCULAR HEMOGLOBIN 28.4 pg (27.0-34.8); MEAN CORPUSCULAR HGB CONC 32.6 g/dL (32.4-35.8); MEAN CORPUSCULAR VOLUME 87.2 fL (80-100); MEAN PLATELET VOLUME 9.1 fL (7.4-10.4); MONOCYTES # (AUTO) 0.95 x10^3/uL (0.2-0.8); MONOCYTES % (AUTO) 13 % (2-9); NEUTROPHILS # (AUTO) 5.23 x10^3/uL (1.8-6.8); NEUTROPHILS % (AUTO) 70 % (42-75); PLATELET COUNT 237 x10^3/uL (130-400); RED BLOOD COUNT 3.81 x10^6/uL (3.82-5.3)
[2019-04-29 06:02] LABS: ALBUMIN 2.8 g/dL (3.4-5.0); CALCIUM 8.4 mg/dL (8.5-10.1); CHLORIDE 106 mmol/L (98-107)
[2019-04-29 06:09] LABS: ALANINE AMINOTRANSFERASE 27 U/L (12-78); ALKALINE PHOSPHATASE 71 U/L (45-117); ANION GAP 7 mmol/L (5-15); BILIRUBIN,TOTAL 0.8 mg/dL (0.2-1.0); CREATININE 0.63 mg/dL (0.55-1.02)
[2019-04-29 07:23] VITALS: BP 149/72
[2019-04-29] MEDS: AMLODIPINE 5 MG TABLET PO SCH (08:44)
[2019-04-29] MEDS: ASPIRIN 325 MG TABLET EC PO SCH (08:44)
[2019-04-29] MEDS: LOSARTAN 100 MG TAB PO SCH (08:44)
[2019-04-29] MEDS: FLUOXETINE HCL 20 MG CAPSULE PO SCH (08:44)
[2019-04-29] MEDS: (Fluticasone/Umeclidin/Vilanter (Trelegy Ellipta 100-62.5-25 HOMEINH SCH (08:45)
[2019-04-29] MEDS: OMEPRAZOLE 20 MG CAPSULE.DR PO SCH (08:45)
[2019-04-29] MEDS ORDERED: PROMETHAZINE 25MG TABLET PO PRN (10:00)
[2019-04-29] MEDS ORDERED: ONDA4TAB7 PO (13:34)
== END 2019-04-29 15:20 | disposition home or self-care (01) ==
LOC: ED 08:57 → EDIP 09:51 → INTOOBSV 09:51 → 3N 11:57 → DCLOUNGE 04-29 15:08
PROVIDERS: ADMIT Family Medicine; ATTEND Family Medicine
DX: R11.2 Nausea with vomiting, unspecified (principal); E86.0 Dehydration; I10 Essential (primary) hypertension; J44.9 Chronic obstructive pulmonary disease, unspecified; J96.11 Chronic respiratory failure with hypoxia; I25.10 Atherosclerotic heart disease of native coronary artery without angina pectoris; G47.33 Obstructive sleep apnea (adult) (pediatric); F32.9 Major depressive disorder, single episode, unspecified; K21.9 Gastro-esophageal reflux disease without esophagitis; G62.9 Polyneuropathy, unspecified; Z85.3 Personal history of malignant neoplasm of breast; I25.2 Old myocardial infarction; Z86.73 Personal history of transient ischemic attack (TIA), and cerebral infarction without residual deficits; Z90.10 Acquired absence of unspecified breast and nipple; Z99.81 Dependence on supplemental oxygen; Z79.82 Long term (current) use of aspirin; Z79.899 Other long term (current) drug therapy
CPT/HCPCS: 36415; 74021; 80048; 80053; 80076; 81001; 82040; 84484; 85025; 87400; 93005; 96360; 96361; 97161; 99285; G0378; J7040; J7120

== ENCOUNTER 2019-09-08 11:24 | Emergency (ER) | payer MEDICARE, MEDICAID ==
[~2019-09-08] VITALS: Ht 165.1 cm; Wt 79.1 kg
[~2019-09-08 11:24] MED LIST changes: +AMLO-150 PO; +ASPI-650 PO; +FOLIC; +ONDA4TAB7 PO; +PRESERVISION
--- NOTE | 2019-09-08 11:30 | NUR ---
Note undone in EDM - 09/08/19 at 1153 by RFRUHLING PT BIB [facility] FROM HOME FOR C/O N/V SINCE SUNDAY, UNABLE TO KEEP MUCH DOWN, AND WEAKNESS. PT LIVES ALONE AND HAS CAREGIVER THAT COMES WEEKLY. VSS PER EMS: 140s/70s, HR 60, 97% ON 2L HOME O2 (BASELINE), BS 117. PT ARRIVES TO ED A&OX4, NO OBVIOUS SIGNS OF DISTRESS, NOT NAUSEOUS OR VOMITING AT THIS TIME. GENERAL WEAKNESS, SOB WITH EXERTION.
--- NOTE | 2019-09-08 12:04 | NUR ---
PT NAUSEOUS/DRY HEAVING. EMESIS BAG PROVIDED. DAUGHTER & FRIEND VISITING AT BS.
[2019-09-08] MEDS ORDERED: DOCU-144 PO (12:14)
--- NOTE | 2019-09-08 12:48 | NUR ---
IV STARTED AND BLOOD DRAWN. AWAITING ERP.
[2019-09-08 13:00] VITALS: BP 160/85
--- NOTE | 2019-09-08 13:00 | NUR ---
ERP AT NOW.
[2019-09-08] MEDS ORDERED: ONDANSETRON 2MG/ML, 2ML ONE (13:05)
[2019-09-08] MEDS ORDERED: FAMOTIDINE 20 MG/2 ML ONE (13:05)
--- NOTE | 2019-09-08 13:16 | NUR ---
PT MEDICATED PER ORDERS. IV BOLUS INFUSING. PT UNDERSTANDS POC. FRIEND REMAINS AT BS.
[2019-09-08 13:20] LABS: BASOPHILS # (AUTO) 0.01 x10^3/uL (0-0.1); BASOPHILS % (AUTO) 0 % (0-1); EOSINOPHILS % (AUTO) 0 % (1-7); LYMPHOCYTES # (AUTO) 0.69 x10^3/uL (1-3.4); LYMPHOCYTES % (AUTO) 12 % (22-44); MD NO; MEAN CORPUSCULAR HEMOGLOBIN 27.4 pg (27.0-34.8); MEAN CORPUSCULAR HGB CONC 32.4 g/dL (32.4-35.8); MEAN PLATELET VOLUME 9.4 fL (7.4-10.4); MONOCYTES # (AUTO) 0.46 x10^3/uL (0.2-0.8); MONOCYTES % (AUTO) 8 % (2-9); NEUTROPHILS # (AUTO) 4.57 x10^3/uL (1.8-6.8); NEUTROPHILS % (AUTO) 80 % (42-75); PLATELET COUNT 236 x10^3/uL (130-400); RED CELL DISTRIBUTION WIDTH 14.7 % (9.6-15.2)
[2019-09-08 13:27] LABS: ALANINE AMINOTRANSFERASE 53 U/L (12-78); ALBUMIN 3.7 g/dL (3.4-5.0); ANION GAP 6 mmol/L (5-15); CALCIUM 9.4 mg/dL (8.5-10.1); CHLORIDE 105 mmol/L (98-107); CREATININE 0.96 mg/dL (0.55-1.02)
[2019-09-08 13:29] LABS: ALKALINE PHOSPHATASE 88 U/L (45-117); BILIRUBIN,TOTAL 0.3 mg/dL (0.2-1.0); TOTAL PROTEIN 7.3 g/dL (6.4-8.2)
[2019-09-08] MEDS ORDERED: SODIUM CHLORIDE 0.9% 1,000ML IVBOLUS ONE (13:30)
[2019-09-08] MEDS ORDERED: ONDANSETRON 2MG/ML, 2ML IVPush ONE (13:30)
[2019-09-08] MEDS ORDERED: FAMOTIDINE 20 MG/2 ML IV ONE (13:30)
--- NOTE | 2019-09-08 13:59 | NUR ---
RV'WD POC WITH PT. PT STATES SHE FEELS MUCH BETTER AFTER MEDS & IVF. WARM BLANKETS PROVIDED. PT STATES SHE CAN'T VOID AT THIS TIME.
[2019-09-08] MEDS ORDERED: SODIUM CHLORIDE FLUSH 10ML SYR IVF ONE (14:00)
--- NOTE | 2019-09-08 15:04 | NUR ---
ASSISTED PT TO BR VIA WC. INSTRUCTED ON CLEAN CATCH URINE SAMPLE.
--- NOTE | 2019-09-08 15:24 | NUR ---
PT TO CT VIA [facility].
--- NOTE | 2019-09-08 15:39 | NUR ---
PT RETURNS FROM CT.
[2019-09-08] MEDS ORDERED: OMNIPAQUE 350 MG/ML, 100ML BOTTLE ONE (15:40)
[2019-09-08 16:11] LABS: MICROSCOPIC INDICATED
--- NOTE | 2019-09-08 16:15 | NUR ---
ERP AT FOR RECHECK.
--- NOTE | 2019-09-08 17:20 | NUR ---
PT TOLERATED SOME SODA AND A CAMELIA CRACKER. STATES SHE WANTS TO GO HOME.
--- NOTE | 2019-09-08 17:29 | NUR ---
PT'S FRIEND HERE TO TAKE HER HOME.
--- NOTE | 2019-09-08 17:50 | NUR ---
D/C INSTRUCTIONS, MEDS & F/U APPT RV'WD WITH PT, SHE VERBALIZES UNDERSTANDING. RX GIVEN X1. INSTRUCTED PT TO RETURN TO ED IF SYMPTOMS DON'T RESOLVE. ASSISTED OUT OF ED WITH WHEELCHAIR AND PORTABLE O2. FRIEND TO DRIVE HER HOME.
[2019-09-11] MEDS ORDERED: POLY17PO5 PO (10:56)
[2019-09-11] MEDS ORDERED: PREG50CA PO (10:56)
== END 2019-09-08 18:03 | disposition home or self-care (01) ==
LOC: ED 16:10
DX: R11.2 Nausea with vomiting, unspecified (principal); E86.0 Dehydration; R10.84 Generalized abdominal pain; R53.1 Weakness; I10 Essential (primary) hypertension; J44.9 Chronic obstructive pulmonary disease, unspecified; I25.2 Old myocardial infarction; Z86.73 Personal history of transient ischemic attack (TIA), and cerebral infarction without residual deficits
CPT/HCPCS: 36415; 74177; 80053; 81001; 83690; 85025; 96361; 96374; 96375; 99285; J2405; J3490; J7030; Q9967